=== PATIENT | female | born 1960 | race Caucasian/White ===

== ENCOUNTER 2019-03-08 16:07 | Emergency (ER) | payer OTHER ==
[~2019-03-08] VITALS: Ht 160 cm; Wt 78.9 kg
[2019-03-08 16:45] VITALS: Ht 160 cm; Wt 78.9 kg
[2019-03-08 17:29] LABS: CARBON DIOXIDE 35.3 mmol/L (21-32); CHLORIDE SERUM 101 mmol/L (98-107); CREATININE SERUM 0.9 mg/dL (0.6-1.0); GFR1 > 60 mL/min; GLUCOSE SERUM 146 mg/dL (74-106); POTASSIUM SERUM 3.4 mmol/L (3.5-5.1); SODIUM SERUM 143 mmol/L (136-145)
[2019-03-08 17:30] LABS: ALBUMIN 3.6 g/dL (3.4-5.0); ALKALINE PHOSPHATASE 125 U/L (46-116); ALT/SGPT 39 U/L (14-59); AST/SGOT 23 U/L (15-37); BILIRUBIN TOTAL 0.26 mg/dL (0.20-1.00); CALCIUM 9.9 mg/dL (8.5-10.1); LIPASE 187 IU/L (73-393)
[2019-03-08 17:31] LABS: BASOPHIL % 0.4 % (0-2); PLATELET COUNT 399 x10^3mcL (130-400); RED CELL DISTRIBUTION WIDTH 13.3 % (11.5-14.5)
[2019-03-08 17:41] LABS: microscopic required? YES; urine erythrocyte NEGATIVE (NEGATIVE)
[2019-03-08 20:31] VITALS: BP 125/65
== END 2019-03-08 20:31 | disposition home or self-care (01) ==
LOC: ED 16:07
PROVIDERS: Emergency Medicine
DX: N10 Acute pyelonephritis (principal); E11.9 Type 2 diabetes mellitus without complications; R42 Dizziness and giddiness; Z98.890 Other specified postprocedural states
CPT/HCPCS: J0696; J1885; J2405; J7030; J7060; Q0092